=== PATIENT | male | born 1995 | race Caucasian/White ===

== ENCOUNTER 2017-09-05 08:46 | Emergency (ER) | payer BC, OTHER ==
--- NOTE | 2017-09-05 09:29 | EDM.PDOC ---
ED HPI GENERAL MEDICAL PROBLEM - General Chief Complaint: Back Pain or Injury Stated Complaint: BACK INJURY FROM FALL Time Seen by Provider: 09/05/17 09:29 Source of Information: Reports: Patient History Limitations: Reports: No Limitations - History of Present Illness INITIAL COMMENTS - FREE TEXT/NARRATIVE: 21-year-old male reports to the ED after slipping and falling on the driveway this morning. He states he was running because it was cold outside and slipped on ice with his feet going out from underneath him. He landed hard on his right mid and lower back. States it did not the wind out of him. He denies hitting his head or losing consciousness. Says really he has developed significant pain in his right mid low back and has appreciated a waddling type gait because his hips don't seem to line up. States it does hurt mildly to deep breathe. Pain is not bad if he is lying still but worse with movement. Onset: Today Onset Date: 09/05/17 Onset Time: 07:45 Duration: Hour(s): Location: Reports: Back (Right mid and lower back) Quality: Reports: Ache, Throbbing Severity: Moderate Improves with: Reports: Rest Worsens with: Reports: Movement Context: Reports: Trauma (Slipped and fell on ice this morning landing hard on his right back.). Denies: Activity, Exercise, Lifting, Sick Contact Associated Symptoms: Reports: No Other Symptoms Treatments BUSINESS SPECIALIST: Reports: Other (see below) Lower Back Pain Score (Numeric/FACES): 8 - Related Data Allergies Allergy/AdvReac Type Severity Reaction Status Date / Time Penicillins Allergy Cannot Verified 09/05/17 09:07 Remember Home Meds: Home Meds oxyCODONE HCl/Acetaminophen [Percocet 5-325 mg Tablet] 1 - 2 each PO Q4H PRN # 20 tablet 09/05/17 [Rx] Past Medical History - Past Health History Medical/Surgical History: Denies Medical/Surgical History Social & Family History - Tobacco Use Smoking Status *Q: Current Every Day Smoker Years of Tobacco use: 3 Packs/Tins Daily: 0.4 - Caffeine Use Caffeine Use: Reports: Energy Drinks - Recreational Drug Use Recreational Drug Use: No - Living Situation & Occupation Living situation: Reports: Single Occupation: Employed ED ROS GENERAL - Review of Systems Review Of Systems: See Below Constitutional: Reports: No Symptoms HEENT: Reports: No Symptoms Respiratory: Reports: No Symptoms Cardiovascular: Reports: No Symptoms Endocrine: Reports: No Symptoms GI/Abdominal: Reports: No Symptoms : Reports: No Symptoms Musculoskeletal: Reports: No Symptoms Skin: Reports: No Symptoms Neurological: Reports: No Symptoms Psychiatric: Reports: No Symptoms Hematologic/Lymphatic: Reports: No Symptoms Immunologic: Reports: No Symptoms ED EXAM,LOWER BACK PAIN/INJURY - Physical Exam Exam: See Below Exam Limited By: No Limitations General Appearance: Alert, WD/WN, No Apparent Distress Neck: Normal Inspection, Supple, Non-Tender, Full Range of Motion. No: Lymphadenopathy (L), Lymphadenopathy (R) Respiratory/Chest: No Respiratory Distress, Lungs Clear, Normal Breath Sounds, Respiratory Distress Cardiovascular: Normal Peripheral Pulses, Regular Rate, Rhythm, No Edema, No Murmur GI/Abdominal: Normal Bowel Sounds, Soft, Non-Tender, No Organomegaly Back Exam: Muscle Spasm (Large hematoma over his right flank area from thoracic 7 to lumbar 2. Cannot palpate the rib heads or spinous processes in this area due to the size of the hematoma. He has have pain bilaterally lumbar spine from L3-L5.), Paraspinal Tenderness (Right side from T7 to lumbar 2. Slight abrasion appreciated with large hematoma in this area.), Other (SI joints are normal. He was able to get up from bed and be examined in the standing position.) Extremities: Normal Inspection, Normal Range of Motion, Non-Tender, No Pedal Edema Neurological: Alert, Normal Mood/Affect, Normal Dorsiflexion, CN II-XII Intact, Normal Gait, Oriented x 3 Psychiatric: Normal Affect, Normal Mood Skin Exam: Warm, Dry, Intact, Normal Color, No Rash Course - Vital Signs Last Recorded V/S: Last Vital Signs Temp 36.6 C 09/05/17 09:07 Pulse 68 09/05/17 09:07 Resp 14 09/05/17 09:07 BP 141/87 H 09/05/17 09:07 Pulse Ox 100 09/05/17 09:07 - Orders/Labs/Meds Orders: Active Orders 24 hr Category Date Time Status Lumbar Spine 2 or 3V [CR] Stat Exams 09/05/17 09:35 Taken Thoracic Spine 2V [CR] Stat Exams 09/05/17 09:36 Taken Meds: Medications Discontinued Medications Generic Name Dose Route Start Last Admin Trade Name Freq PRN Reason Stop Dose Admin Ibuprofen 600 mg 09/05/17 09:35 09/05/17 09:47 Motrin PO 09/05/17 09:36 600 mg ONETIME ONE Administration Oxycodone/Acetaminophen 1 tab 09/05/17 09:35 09/05/17 09:48 Percocet 325-5 Mg PO 09/05/17 09:36 1 tab ONETIME ONE Administration - Radiology Interpretation Free Text/Narrative:: 21-year-old male presents to the ED for evaluation of low back pain after he slipped and fell outside this morning. States his feet went out from underneath him on the ice and he landed hard on his right mid and lower back. Examination reveals a large hematoma from thoracic 7 to lumbar 2 on the right side. Difficult to palpate rib heads and transverse processes because of the size of the hematoma. No other injuries seem to have occurred. Plan AP and lateral of his thoracic and lumbar spine to be done. Given Motrin 600 mg by mouth with 1 Percocet 5/3/25 milligram tablet by mouth for pain relief. - Re-Assessments/Exams Free Text/Narrative Re-Assessment/Exam: 09/05/17 10:22 AP and lateral x-rays of the thoracic and lumbar spine are negative for any fractures particularly of the spinous processes or right lower ribs. Treatment will be conservative with ice to the area for one half hour out of every 4 hours today and tomorrow. Written for Percocet 5/3/25 milligram tablets one or 2 every 4-6 hours in combination with ibuprofen 600 mg every 6 hours for pain relief. Departure - Departure Time of Disposition: 10:23 Disposition: Home, Self-Care 01 Condition: Fair Clinical Impression: Contusion of lower back Fall as cause of accidental injury at home as place of occurrence Qualifiers: Encounter type: initial encounter Qualified Code(s): W19.XXXA - Unspecified fall, initial encounter - Discharge Information Prescriptions: oxyCODONE HCl/Acetaminophen [Percocet 5-325 mg Tablet] 1 - 2 each PO Q4H PRN # 20 tablet PRN Reason: pain relief. Referrals: PCP,None [Primary Care Provider] - Forms: ED Department Discharge Additional Instructions: Evaluation the emergent today in regards to acute injury to the right lower back from a fall on the ice outside her home this morning. Exam reveals a large hematoma indicating contusion to the muscles overlying the lower thoracic and upper lumbar spine on the right side. X-rays of both the thoracic and lumbar spine were carried out to do not reveal any bony injuries. Injuries are therefore soft tissue to the overlying muscles and ligaments. Treatment is therefore conservative with time to heal. Expect things to get worse before they get better over the next 24 hours due to the swelling in the muscles. Suggest low-level activity today and tomorrow. Ice pack to the area one half hour out of every 4 hours while awake. Continue ibuprofen or Motrin 600 mg every 6 hours to relieve pain and inflammation. Percocet 5/3/25 milligram tablets one or 2 every 4-6 hours for pain not controlled by Motrin alone. - My Orders Last 24 Hours: My Active Orders 09/05/17 09:35 Lumbar Spine 2 or 3V [CR] Stat 09/05/17 09:36 Thoracic Spine 2V [CR] Stat - Assessment/Plan Last 24 Hours: My Active Orders 09/05/17 09:35 Lumbar Spine 2 or 3V [CR] Stat 09/05/17 09:36 Thoracic Spine 2V [CR] Stat
[2017-09-05] MEDS ORDERED: Ibuprofen 600 MG Tab PO ONE (09:35)
[2017-09-05] MEDS ORDERED: Acetaminophen/oxyCODONE 325-5 MG Tab PO ONE (09:35)
--- NOTE | 2017-09-05 14:52 | CR ---
Thoracic spine: AP and lateral views of the thoracic spine were obtained. Comparison: No prior study. Vertebral body heights and disc spaces are maintained. Pedicles are intact. No discrete fracture or subluxation is seen. Impression: 1. No abnormality is identified on two-view thoracic spine study. Diagnostic code #1
--- NOTE | 2017-09-05 14:52 | CR ---
Lumbar spine: AP and lateral views of the lumbar spine were obtained. Comparison: No previous study. Vertebral body heights and disc spaces are maintained in height. Pedicles as well as transverse and spinous processes are intact. No fracture or abnormal subluxation is seen. Impression: 1. No abnormality is identified on two-view lumbar spine study. Diagnostic code #1
== END 2017-09-05 10:40 | disposition home or self-care (01) ==
LOC: JD.ED 08:46
DX: S30.0XXA Contusion of lower back and pelvis, initial encounter (principal); F17.210 Nicotine dependence, cigarettes, uncomplicated; Z88.0 Allergy status to penicillin; W01.0XXA Fall on same level from slipping, tripping and stumbling without subsequent striking against object, initial encounter
CPT/HCPCS: 72070; 72100; 99284; A9270; 99283

== ENCOUNTER 2017-09-13 09:51 | Emergency (ER) | payer BC ==
[2017-09-13] MEDS ORDERED: Sodium Chloride 0.9% 1,000 ML IV ONE (10:14)
--- NOTE | 2017-09-13 10:15 | EDM.PDOC ---
ED HPI GENERAL MEDICAL PROBLEM - General Chief Complaint: Syncope Stated Complaint: PASSED OUT THIS AM Time Seen by Provider: 09/13/17 10:06 Source of Information: Reports: Patient, RN Notes Reviewed History Limitations: Reports: No Limitations - History of Present Illness INITIAL COMMENTS - FREE TEXT/NARRATIVE: The patient states that he was in his bathroom, brushing his teeth. He states that he leaned over the sink to spit, and when he stood up, he apparently suffered a syncopal episode, falling backwards. He states that he was not injured. He states that his girlfriend heard him fall, and was quickly at his side. He states that he was unconscious only briefly. He denies having a headache. He states that he has had 4 prior similar episodes over the past 6 years, always while standing upright, and always associated with lightheadedness, although he states that he was not lightheaded before he passed out this morning. He states that he has not had a prior medical evaluation for any of his syncopal episodes. No recent illness, although the patient states that he has been working more than usual recently. The patient does not have a PCP. Lower Back Pain Score (Numeric/FACES): 6 - Related Data Allergies Allergy/AdvReac Type Severity Reaction Status Date / Time Penicillins Allergy Cannot Verified 09/13/17 10:03 Remember Home Meds: Home Meds oxyCODONE HCl/Acetaminophen [Percocet 5-325 mg Tablet] 1 - 2 each PO Q4H PRN # 20 tablet 09/05/17 [Rx] Past Medical History - Past Surgical History HEENT Surgical History: Reports: Oral Surgery ([place] teeth extraction) Social & Family History - Tobacco Use Smoking Status *Q: Current Every Day Smoker Years of Tobacco use: 6 Packs/Tins Daily: 0.3 Packs/Tins Daily Comment: Down from 09/07 ppd - Caffeine Use Caffeine Use: Reports: Energy Drinks - Alcohol Use Alcohol Use History: Yes Alcohol Use Frequency: Socially - Recreational Drug Use Recreational Drug Use: No - Living Situation & Occupation Living situation: Reports: Single, Alone ([facility]) Occupation: Employed ED ROS GENERAL - Review of Systems Review Of Systems: See Below Constitutional: Reports: No Symptoms HEENT: Reports: No Symptoms Respiratory: Reports: No Symptoms Cardiovascular: Reports: No Symptoms Endocrine: Reports: No Symptoms GI/Abdominal: Reports: No Symptoms : Reports: No Symptoms Musculoskeletal: Reports: No Symptoms Skin: Reports: No Symptoms Neurological: Reports: No Symptoms Psychiatric: Reports: No Symptoms Hematologic/Lymphatic: Reports: No Symptoms Immunologic: Reports: No Symptoms - Physical Exam Exam: See Below Exam Limited By: No Limitations General Appearance: Alert, WD/WN, No Apparent Distress Eye Exam: Bilateral Eye: EOMI, Normal Inspection, PERRL Ears: Normal External Exam, Normal Canal, Hearing Grossly Normal, Normal TMs Nose: Normal Inspection, Normal Mucosa, No Blood Throat/Mouth: Normal Inspection, Normal Lips, Normal Teeth, Normal Gums, Normal Oropharynx, Normal Voice, No Airway Compromise Head Exam: Atraumatic, Normocephalic Neck: Normal Inspection, Supple, Non-Tender, Full Range of Motion Respiratory/Chest: No Respiratory Distress, Lungs Clear, Normal Breath Sounds, No Accessory Muscle Use Cardiovascular: Normal Peripheral Pulses, Regular Rate, Rhythm, No Gallop, No JVD, No Murmur, No Rub GI/Abdominal: Normal Bowel Sounds, Soft, Non-Tender, No Organomegaly, No Distention, No Abnormal Bruit, No Mass (Male) Exam: Deferred Rectal (Males) Exam: Deferred Neuro Exam (Abbreviated): Alert, Oriented, CN II-XII Intact, Normal Cognition, No Motor/Sensory Deficits Back Exam: Normal Inspection, Full Range of Motion, NT Extremities: Normal Inspection, Normal Range of Motion, No Pedal Edema, Normal Capillary Refill Psychiatric: Normal Affect Skin Exam: Warm, Dry, Intact, Normal Color, No Rash EKG INTERPRETATION EKG Date: 09/13/17 Time: 10:48 Rhythm: NSR Rate (Beats/Min): 60 [place]: Normal P-Wave: Present QRS: Normal ST-T: Elevated (Diffuse J-point elevation) QT: Normal Comparison: NA - No Prior EKG Course - Vital Signs Last Recorded V/S: Last Vital Signs Temp 36.3 C 09/13/17 09:58 Pulse 83 09/13/17 09:58 Resp 16 09/13/17 09:58 BP 110/77 09/13/17 09:58 Pulse Ox 100 09/13/17 09:58 Orthostatic Blood Pressure [ 118/72 Standing] Orthostatic Blood Pressure [ 131/73 Sitting] Orthostatic Blood Pressure [ 135/77 Supine] - Orders/Labs/Meds Orders: Active Orders 24 hr Category Date Time Status EKG Documentation Completion [RC] STAT Care 09/13/17 10:28 Active Orthostatic Vital Signs [RC] STAT Care 09/13/17 10:14 Active Orthostatic Vital Signs [RC] STAT Care 09/13/17 10:14 Active Labs: Laboratory Tests 09/13/17 09/13/17 09/13/17 Range/Units 10:40 10:40 10:40 WBC 8.21 (4.23-9.07) K/mm3 RBC 4.61 L (4.63-6.08) M/mm3 Hgb 14.5 (13.7-17.5) gm/L Hct 42.3 (40.1-51.0) % MCV 91.8 (79.0-92.2) fl MCH 31.5 (25.7-32.2) pg MCHC 34.3 (32.2-35.5) g/dl RDW Std Deviation 41.9 (35.1-43.9) fL Plt Count 295 (163-337) K/mm3 MPV 8.6 L (9.4-12.3) fl Neutrophils % (Manual) 74 H (40-60) % Band Neutrophils % 1 (0-10) % Lymphocytes % (Manual) 20 (20-40) % Atypical Lymphs % 0 % Monocytes % (Manual) 4 (2-10) % Eosinophils % (Manual) 0 L (0.8-7.0) % Basophils % (Manual) 1 (0.2-1.2) Platelet Estimate Adequate RBC Morph Comment Normal PT 10.7 (8.0-13.0) SECONDS INR 0.98 APTT 29 (22-36) SECONDS D-Dimer, Quantitative < 0.19 L (0.19-0.59) mg/L Sodium 141 (136-145) mEq/L Potassium 4.0 (3.5-5.1) mEq/L Chloride 105 (98-107) mEq/L Carbon Dioxide 29 (21-32) mEq/L Anion Gap 11.0 (5-15) BUN 12 (7-18) mg/dL Creatinine 0.9 (0.7-1.3) mg/dL Est Cr Clr Drug Dosing 144.26 mL/min Estimated GFR (MDRD) > 60 (>60) mL/min BUN/Creatinine Ratio 13.3 L (14-18) Glucose 94 (74-106) mg/dL Calcium 9.0 (8.5-10.1) mg/dL Magnesium 2.1 (1.8-2.4) mg/dl Total Bilirubin 2.8 H (0.2-1.0) mg/dL AST 19 (15-37) U/L ALT 29 (16-63) U/L Alkaline Phosphatase 52 (46-116) U/L Total Protein 7.0 (6.4-8.2) g/dl Albumin 4.0 (3.4-5.0) g/dl Globulin 3.0 gm/dL Albumin/Globulin Ratio 1.3 (1-2) Meds: Medications Discontinued Medications Generic Name Dose Route Start Last Admin Trade Name Freq PRN Reason Stop Dose Admin Sodium Chloride 1,000 mls @ 999 mls/hr 09/13/17 10:14 09/13/17 10:47 Normal Saline IV 09/13/17 11:14 999 mls/hr ONETIME ONE Administration - Re-Assessments/Exams Free Text/Narrative Re-Assessment/Exam: 09/13/17 10:15 The patient is orthostatic. I have ordered 1 L normal saline bolus, then will recheck orthostatics. 09/13/17 10:58 Two-view chest radiograph appears to be grossly normal. Cardiac silhouette is within normal limits. No pulmonary vascular congestion. No pleural effusions. No focal infiltrate. No pneumothorax. Formal read per the Radiologist pending. 09/13/17 12:04 Following 1 L normal saline, the patient is no longer orthostatic. 09/13/17 12:14 Test results discussed with the patient and his girlfriend. As above, the patient was found to be orthostatic, resolved after receiving 1 L IV fluid. I am recommending that he stay well hydrated. The remainder of his workup was unremarkable, with the exception of an elevated total bilirubin level. The patient has no abdominal complaints; his elevated bilirubin is most likely due to Gilbert syndrome. Departure - Departure Time of Disposition: 12:16 Disposition: Home, Self-Care 01 Condition: Good Clinical Impression: Syncope due to orthostatic hypotension, Gilbert syndrome - Discharge Information Instructions: Hypotension, Syncope, [id number] Referrals: PCP,None [Primary Care Provider] - Forms: ED Department Discharge, ED Return to Work/School Form Additional Instructions: You were seen in the emergency room after passing out at home when you stood up. Workup in the ER included blood work, an ECG, and positional blood pressure checks. Your heart rate christen excessively between lying down and standing up, a condition known as orthostasis. This is caused by intravascular depletion, and resolved after you received 1 L of IV fluid. Going forward, make sure that you stay adequately hydrated. Gatorade or Powerade are best. One way to tell that you are adequately hydrated is to check the color of your urine. You want it to be light in color, like lemonade, not dark, like apple juice. The remainder of your workup was unremarkable, with the exception that your total bilirubin level is high, a condition called Gilbert syndrome. This is an incidental finding, and does not require medical treatment. If any other problems, please do not hesitate to return to the ER. - My Orders Last 24 Hours: My Active Orders 09/13/17 10:14 Orthostatic Vital Signs [RC] STAT Orthostatic Vital Signs [RC] STAT 09/13/17 10:28 EKG Documentation Completion [RC] STAT - Assessment/Plan Last 24 Hours: My Active Orders 09/13/17 10:14 Orthostatic Vital Signs [RC] STAT Orthostatic Vital Signs [RC] STAT 09/13/17 10:28 EKG Documentation Completion [RC] STAT
--- NOTE | 2017-09-13 12:12 | CR ---
Chest: Two views of the chest were obtained. Comparison: Prior chest x-ray of 08/23/12. Heart size and mediastinum are normal. Lungs are clear. Bony structures are unremarkable. Impression: 1. Nothing acute is seen on two-view chest x-ray. Diagnostic code #1
== END 2017-09-13 12:31 | disposition home or self-care (01) ==
LOC: JD.ED 09:51
DX: I95.1 Orthostatic hypotension (principal); E80.4 Gilbert syndrome; F17.210 Nicotine dependence, cigarettes, uncomplicated; Z88.0 Allergy status to penicillin
CPT/HCPCS: 36415; 71046; 80053; 83735; 85025; 85379; 85610; 85730; 93005; 96360; 99284; J7040; 93010

== ENCOUNTER 2017-10-04 10:32 | Emergency (ER) | payer BC ==
[2017-10-04] MEDS ORDERED: Sodium Chloride 0.9% 10 ML Syringe FLUSH PRN (11:03)
[2017-10-04] MEDS ORDERED: Sodium Chloride 0.9% 1,000 ML IV SCH (11:15)
--- NOTE | 2017-10-04 12:45 | EDM.PDOC ---
ED HPI GENERAL MEDICAL PROBLEM - General Chief Complaint: Syncope Stated Complaint: SYNCOPE Time Seen by Provider: 10/04/17 11:02 Source of Information: Reports: Patient, RN Notes Reviewed - History of Present Illness INITIAL COMMENTS - FREE TEXT/NARRATIVE: 21-year-old male that suffered a syncopal event couple of hours ago at home. He had been going up and down stairs and various other activities around the house getting ready for work this morning. Going up the steps with some laundry when he did begin to feel weak lightheaded and dizzy as he was approaching the top. Then when he did reach the top he did completely pass out for a very brief period of time. He also did suffer an episode of syncope about 2 weeks ago. At that time he was just in the bathroom brushing his teeth once again in the morning. He has not been having chest pain. He states he does get occasional palpitations but usually that would be with exertion. Feels somewhat short of breath as he was reaching the top of the stairs but not in a dramatic way. Had no recent cough fever or chills. No abdominal pain nausea vomiting or diarrhea. He states he has had other syncopal events over the past 5-10 years but never this close together. - Related Data Allergies Allergy/AdvReac Type Severity Reaction Status Date / Time Penicillins Allergy Cannot Verified 10/04/17 10:55 Remember Home Meds: Home Meds . [No Known Home Meds] 10/04/17 [History] Past Medical History - Past Health History Medical/Surgical History: Denies Medical/Surgical History - Past Surgical History HEENT Surgical History: Reports: Oral Surgery Social & Family History - Family History Neurological: Reports: CVA, Other (See Below) Other Neurological Family History: brain tumor Oncologic: Reports: Breast - Tobacco Use Smoking Status *Q: Current Every Day Smoker Years of Tobacco use: 4 Packs/Tins Daily: 0.3 - Caffeine Use Caffeine Use: Reports: Energy Drinks - Recreational Drug Use Recreational Drug Use: No - Living Situation & Occupation Living situation: Reports: Single, Alone ([facility]) Occupation: Employed ED ROS GENERAL - Review of Systems Review Of Systems: See Below Constitutional: Denies: Fever, Chills HEENT: Denies: Sinus Problem, Throat Pain, Vertigo Respiratory: Denies: Shortness of Breath, Pleuritic Chest Pain Cardiovascular: Denies: Chest Pain GI/Abdominal: Denies: Abdominal Pain, Nausea, Vomiting Musculoskeletal: Denies: Neck Pain, Back Pain, Joint Pain Skin: Reports: No Symptoms Neurological: Reports: Dizziness (Gone) - Physical Exam Exam: See Below General Appearance: Alert, No Apparent Distress Eye Exam: Bilateral Eye: PERRL Throat/Mouth: Normal Inspection, Normal Oropharynx Head Exam: Atraumatic. No: Facial Swelling Neck: Supple, Non-Tender, Full Range of Motion Respiratory/Chest: No Respiratory Distress, Lungs Clear, Normal Breath Sounds Cardiovascular: Regular Rate, Rhythm GI/Abdominal: Soft, Non-Tender Neuro Exam (Abbreviated): Alert, Oriented, No Motor/Sensory Deficits, Other ( Finger to nose testing normal) Back Exam: No: Paraspinal Tenderness, Vertebral Tenderness Extremities: Normal Inspection, Normal Range of Motion Skin Exam: Warm, Dry, Normal Color Course - Vital Signs Last Recorded V/S: Last Vital Signs Temp 97.8 F 10/04/17 10:56 Pulse 88 10/04/17 10:56 Resp BP 135/70 10/04/17 10:56 Pulse Ox 100 10/04/17 10:56 - Orders/Labs/Meds Labs: Laboratory Tests 10/04/17 10/04/17 Range/Units 11:10 11:10 WBC 5.13 (4.23-9.07) K/mm3 RBC 4.62 L (4.63-6.08) M/mm3 Hgb 14.5 (13.7-17.5) gm/L Hct 42.1 (40.1-51.0) % MCV 91.1 (79.0-92.2) fl MCH 31.4 (25.7-32.2) pg MCHC 34.4 (32.2-35.5) g/dl RDW Std Deviation 40.4 (35.1-43.9) fL Plt Count 280 (163-337) K/mm3 MPV 8.4 L (9.4-12.3) fl Neut % (Auto) 61.3 (34.0-67.9) % Lymph % (Auto) 27.5 (21.8-53.1) % [place] % (Auto) 9.2 (5.3-12.2) % Eos % (Auto) 1.6 (0.8-7.0) Baso % (Auto) 0.4 (0.1-1.2) % Neut # (Auto) 3.15 (1.78-5.38) K/mm3 Lymph # (Auto) 1.41 (1.32-3.57) K/mm3 [place] # (Auto) 0.47 (0.30-0.82) K/mm3 Eos # (Auto) 0.08 (0.04-0.54) K/mm3 Baso # (Auto) 0.02 (0.01-0.08) K/mm3 Sodium 142 (136-145) mEq/L Potassium 3.4 L (3.5-5.1) mEq/L Chloride 106 (98-107) mEq/L Carbon Dioxide 28 (21-32) mEq/L Anion Gap 11.4 (5-15) BUN 15 (7-18) mg/dL Creatinine 0.9 (0.7-1.3) mg/dL Est Cr Clr Drug Dosing 144.26 mL/min Estimated GFR (MDRD) > 60 (>60) mL/min BUN/Creatinine Ratio 16.7 (14-18) Glucose 132 H (74-106) mg/dL Calcium 9.0 (8.5-10.1) mg/dL Total Bilirubin 3.3 H (0.2-1.0) mg/dL AST 23 (15-37) U/L ALT 36 (16-63) U/L Alkaline Phosphatase 55 (46-116) U/L Total Protein 6.5 (6.4-8.2) g/dl Albumin 3.8 (3.4-5.0) g/dl Globulin 2.7 gm/dL Albumin/Globulin Ratio 1.4 (1-2) Meds: Medications Discontinued Medications Generic Name Dose Route Start Last Admin Trade Name Freq PRN Reason Stop Dose Admin Sodium Chloride 1,000 mls @ 999 mls/hr 10/04/17 11:15 10/04/17 11:17 Normal Saline IV 999 mls/hr ONETIME DANYELLE Administration Sodium Chloride 10 ml 10/04/17 11:03 10/04/17 11:17 Saline Flush FLUSH 10 ml ASDIRECTED PRN Administration Keep Vein Open - Re-Assessments/Exams Free Text/Narrative Re-Assessment/Exam: 10/05/17 22:51. Labs all came back relatively normal, potassium was very mildly low. EKG was good. Patient remained in sinus rhythm while here in the ED, no ectopy. Because this was his second event or episode of syncope in 2 weeks time. I have ordered an event recorder for him and also set him up for echocardiogram. Blood pressure remains stable, discharge instructions as documented. Departure - Departure Time of Disposition: 13:10 Disposition: Home, Self-Care 01 Condition: Fair Clinical Impression: Syncope Qualifiers: Syncope type: unspecified Qualified Code(s): R55 - Syncope and collapse - Discharge Information Instructions: Syncope Referrals: PCP,None [Primary Care Provider] - Forms: ED Department Discharge, ED Return to Work/School Form Additional Instructions: Your labs were all relatively normal today. Your potassium was mildly low. Bananas and potatoes are good source of potassium. Eat plenty of fruit and vegetables to help bring that up. Event recorder for about 2 weeks. Order has also been submitted for echocardiogram. Follow-up with Dr. Yip or Dr. Holt at our [facility] medical clinic later this week or early next week. Call [phone] for appointment. If and when you do get weak, dizzy, or lightheaded again be sure to get your head down as discussed, best to lie down if possible. If you do that you will not pass out. Return to ED as needed if symptoms worsening in any way.
== END 2017-10-04 13:30 | disposition home or self-care (01) ==
LOC: JD.ED 10:32
DX: R55 Syncope and collapse (principal); F17.210 Nicotine dependence, cigarettes, uncomplicated; Z88.0 Allergy status to penicillin
CPT/HCPCS: 36415; 80053; 85025; 93005; 93270; 93271; 96360; 99284; J7040; J7050; 93010; 99283

== ENCOUNTER 2018-11-21 21:51 | Emergency (ER) | payer BC, MEDICAID ==
--- NOTE | 2018-11-21 22:38 | EDM.PDOC ---
ED HPI GENERAL MEDICAL PROBLEM - General Chief Complaint: ENT Problem Stated Complaint: BLURRED VISION RIGHT EYE SWELLING RIGHT SIDE HEAD Time Seen by Provider: 11/21/18 22:04 Source of Information: Reports: Patient, RN Notes Reviewed - History of Present Illness INITIAL COMMENTS - FREE TEXT/NARRATIVE: 23-year-old male comes in with pressure discomfort right side of upper face. He also feels throbbing of the right alevism area. He has had pressure of the right side of his face all day. He feels like there is some swelling now of the right temporal area of his forehead and throbbing discomfort to the point of being difficult to sleep. 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 He has had recent nasal congestion but the drainage has been mostly clear. No current sore throat cough fever or chills. No visual difficulty. Right Face/Facial Pain Score (Numeric/FACES): 8 - Related Data Allergies Allergy/AdvReac Type Severity Reaction Status Date / Time Penicillins Allergy Cannot Verified 11/21/18 21:57 Remember Home Meds: Home Meds Cephalexin [Keflex] 500 mg PO Q8HR #20 capsule 11/21/18 [Rx] Past Medical History - Past Health History Medical/Surgical History: Denies Medical/Surgical History - Past Surgical History HEENT Surgical History: Reports: Oral Surgery Social & Family History - Family History Neurological: Reports: CVA, Other (See Below) Other Neurological Family History: brain tumor Oncologic: Reports: Breast - Tobacco Use Smoking Status *Q: Current Every Day Smoker Years of Tobacco use: 5 Packs/Tins Daily: 0.5 - Caffeine Use Caffeine Use: Reports: Energy Drinks - Alcohol Use Days Per Week of Alcohol Use: 3 Number of Drinks Per Day: 3 Total Drinks Per Week: 9 - Recreational Drug Use Recreational Drug Use: No - Living Situation & Occupation Living situation: Reports: Single, Alone ([facility]) Occupation: Employed ED ROS ENT - Review of Systems Review Of Systems: See Below Constitutional: Denies: Fever, Chills HEENT: Reports: Sinus Problem (He has had some nasal and sinus congestion with occasional posterior drainage). Denies: Dental Pain, Ear Discharge, Ear Pain, Eye Discharge, Eye Pain, Throat Pain Respiratory: Denies: Shortness of Breath, Cough Cardiovascular: Denies: Chest Pain GI/Abdominal: Denies: Abdominal Pain, Nausea, Vomiting Musculoskeletal: Denies: Neck Pain, Shoulder Pain, Arm Pain Skin: Reports: No Symptoms Neurological: Reports: Headache (Right-sided temporal area, throbbing discomfort ) ED EXAM, ENT - Physical Exam Exam: See Below General Appearance: Alert, No Apparent Distress Ears: Normal External Exam Nose: Normal Inspection Mouth/Throat: Normal Inspection, Normal Gums, Normal Teeth. No: Dental Tenderness Head: Atraumatic, Facial Tenderness (Is mild tenderness over the right temporal area of his forehead). No: Facial Swelling, Sinus Tenderness Neck: Supple Respiratory/Chest: No Respiratory Distress, Lungs Clear Cardiovascular: Regular Rate, Rhythm GI/Abdominal: Soft, Non-Tender Extremities: Normal Inspection, Normal Range of Motion Neurological: Alert, Oriented, No Motor/Sensory Deficits Skin: Warm, Dry, Normal Color Course - Vital Signs Last Recorded V/S: Last Vital Signs Temp 97.5 F 11/21/18 21:57 Pulse 66 11/21/18 21:57 Resp 18 11/21/18 21:57 BP 151/82 H 11/21/18 21:57 Pulse Ox 99 11/21/18 21:57 - Orders/Labs/Meds Orders: Active Orders 24 hr Category Date Time Status cephALEXin [Keflex] Med 11/21/18 23:23 Once 500 mg PO ONETIME ONE Labs: Laboratory Tests 11/21/18 11/21/18 Range/Units 22:31 22:31 WBC 8.32 (4.23-9.07) K/mm3 RBC 4.49 L (4.63-6.08) M/mm3 Hgb 14.2 (13.7-17.5) gm/L Hct 41.3 (40.1-51.0) % MCV 92.0 (79.0-92.2) fl MCH 31.6 (25.7-32.2) pg MCHC 34.4 (32.2-35.5) g/dl RDW Std Deviation 41.4 (35.1-43.9) fL Plt Count 267 (163-337) K/mm3 MPV 8.4 L (9.4-12.3) fl Neut % (Auto) 58.8 (34.0-67.9) % Lymph % (Auto) 33.9 (21.8-53.1) % [place] % (Auto) 5.3 (5.3-12.2) % Eos % (Auto) 1.6 (0.8-7.0) Baso % (Auto) 0.2 (0.1-1.2) % Neut # (Auto) 4.89 (1.78-5.38) K/mm3 Lymph # (Auto) 2.82 (1.32-3.57) K/mm3 [place] # (Auto) 0.44 (0.30-0.82) K/mm3 Eos # (Auto) 0.13 (0.04-0.54) K/mm3 Baso # (Auto) 0.02 (0.01-0.08) K/mm3 ESR 4 (0-15) mm/hr Meds: Medications Discontinued Medications Generic Name Dose Route Start Last Admin Trade Name Darnellq PRN Reason Stop Dose Admin Acetaminophen 975 mg 11/21/18 22:42 11/21/18 22:52 Tylenol PO 11/21/18 22:43 975 mg NOW ONE Administration Ibuprofen 800 mg 11/21/18 22:42 11/21/18 22:52 Motrin PO 11/21/18 22:43 800 mg ONETIME ONE Administration Departure - Departure Time of Disposition: 23:24 Disposition: Home, Self-Care 01 Condition: Fair Clinical Impression: Sinusitis Qualifiers: Sinusitis location: frontal Chronicity: acute Recurrence: non-recurrent Qualified Code(s): J01.10 - Acute frontal sinusitis, unspecified - Discharge Information Prescriptions: Cephalexin [Keflex] 500 mg PO Q8HR #20 capsule Referrals: PCP,None [Primary Care Provider] - Forms: ED Department Discharge Additional Instructions: Cephalexin antibiotic 500 mg 3 times daily, you have been given your first dose while here in the ED this evening, you also may take [id number] decongestant medication as needed, vaporizer, steam is also good. Alternate Tylenol and ibuprofen as needed for discomfort. Symptoms should gradually get better over the next several days, take the antibiotic prescription until gone. Follow-up at our [facility] medical clinic if symptoms not resolving as expected, call [phone] for appointment as needed. - My Orders Last 24 Hours: My Active Orders 11/21/18 23:23 cephALEXin [Keflex] 500 mg PO ONETIME ONE - Assessment/Plan Last 24 Hours: My Active Orders 11/21/18 23:23 cephALEXin [Keflex] 500 mg PO ONETIME ONE
[2018-11-21] MEDS ORDERED: Acetaminophen 325 MG Tab PO ONE (22:42)
[2018-11-21] MEDS ORDERED: Ibuprofen 800 MG Tab PO ONE (22:42)
[2018-11-21] MEDS ORDERED: Cephalexin 500 MG Cap PO ONE (23:23)
== END 2018-11-21 23:34 | disposition home or self-care (01) ==
LOC: JD.ED 21:51
DX: J01.10 Acute frontal sinusitis, unspecified (principal); F17.210 Nicotine dependence, cigarettes, uncomplicated; Z88.0 Allergy status to penicillin
CPT/HCPCS: 36415; 85025; 85652; 99283; A9270